=== PATIENT | female | born 1960 | race Caucasian/White ===

== ENCOUNTER → 2017-01-11 | Day surgery (SDC) | payer OTHER ==
[~2017-01-11] VITALS: Ht 152.4 cm; Wt 79.5 kg
[~2017-01-11] MED LIST: *Lactated Ringer's INJ 1,000 ML ONE; *MEPERIDINE 25 MG INJ VIAL PERIprocedural Use ONLY ONE; ACETAMINOPHEN 1000 MG/100 ML 100 ML IV ONE; ALPR.25 PO; BACITRACIN TOP OINT 15 GM TUBE ONE; CARV25TA PO; CHLORHEXIDINE GLUCONATE 2 % 1 PACK (2 CLOTHS) TOPICAL PRN; CLINDAMYCIN 600 MG/NS 100 ML IV SCH; CLON0.1T PO; DEXAMETHASONE SOD PHOS 4 MG/ML VIAL ONE; DILT120T PO; FAMOTIDINE 20 MG/2 ML VIAL ONE; HYDR-3516 PO; HYDR-3580 PO; HYDR12.57 PO; INSULIN HUMAN REGULAR 1,000 UNITS/10 ML VIAL SQ PRN; LACTATED RINGER'S 1000 ML IV PRN; LIDOCAINE 0.5%/EPINEPHrine 1:200,000 SOLN 50 ML VIAL ONE; LISI-515 PO; LOSA50TA PO; METH0.35 IM; METOPROLOL TARTRATE 25 MG TAB PO PRN; MIDAZOLAM HCL 2 MG/2 ML VIAL ONE; MORPHINE SULFATE 8 MG/ML INJ ONE; ONDANSETRON HCL 4 MG/2 ML VIAL IV PUSH ONE; OXYMETAZOLINE HCL 0.05% 15 ML NASAL SPRAY ONE; PHENYLEPH/NS 1000 MCG/10 ML SYR IV ONE; POVIDONE IODINE 5% (ANTISEPSIS KIT) 4 APPLICATIONS EACH NARE PRN; PROPOFOL 200 MG/20 ML AMP IV ONE; ROCURONIUM INJ 50 MG/5 ML VIAL IV ONE; SODIUM CHLORID 0.9% 500 ML IV PRN; SOMA350T PO; TIZA4 PO; ePHEDrine/NS 25 MG/5 ML SYR IV ONE; fentaNYL CITRATE 250 MCG/5 ML AMP ONE
[2017-01-11 11:41] VITALS: PULSE 62
[2017-01-11 12:30] VITALS: PULSE 69; TEMP 98.1
[2017-01-11 13:35] VITALS: BP 150/93; PULSE 53; RESP 16; O2SAT 95
--- NOTE | 2017-01-21 12:13 | MP ---
cc: JADYN DORSEY M.D. DATE OF SURGERY: 01/11/2017 SURGEON Jadyn Dorsey MD. PREOPERATIVE DIAGNOSIS 1. Chronic pansinusitis. 2. Sinonasal polyposis. 3. Nasal airway obstruction. 4. Nasal septal deviation. 5. Hypertrophy of inferior turbinates. POSTOPERATIVE DIAGNOSIS 1. Chronic pansinusitis. 2. Sinonasal polyposis. 3. Nasal airway obstruction. 4. Nasal septal deviation. 5. Hypertrophy of inferior turbinates. 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 INDICATIONS Documented in the history and physical. DESCRIPTION OF OPERATION The patient was taken to OR #2 and placed in the supine position. Following induction of general anesthesia and intubation the nose was packed bilaterally with cotton pledgets saturated in 0.05% oxymetazoline. The nasal septum and inferior turbinates were injected with a total of 8 mL of 1% Xylocaine with epinephrine 1:100,000. She was then prepped and draped for surgery. The nasal packing was removed and a hemitransfixion incision was made in the left nasal vestibule. Through this incision the mucosa of septum was elevated bilaterally as far as the junction of the bony cartilaginous septum. This revealed the quadrangular cartilage which showed evidence of old septal fracture with numerous areas of obstruction caused by the comminuted fracture segments. These were removed in a piecemeal fashion using a Dat elevator and Lenny-Yandel forceps, preserving 1.5 cm dorsal and caudal struts. A cumulative area of 1.5 x 1.5 cm was removed. The mucosa was then elevated from the bony septum and the maxillary crest and these were removed using Lenny-Humphries forceps and a 6 mm Finley chisel. The incision was then closed using running suture of 4-0 chromic and the mucosal layers of septum were approximated to each other with a quilting stitch of 4-0 plain gut. The inferior turbinates were addressed next. They were fractured out medially and stab incisions were made along the inferior surfaces and through these incisions submucosal soft tissue was reduced using a curet and preserving the conchal bone. The incision was cauterized using the suction Bovie at 35 waggoner and the remnants of the inferior turbinates were then re-lateralized to the lateral nasal wall. From this point forward the operation was completed using endoscopic visualization. Additional injections of lidocaine and epinephrine were made into the middle turbinates and to the anterior ethmoid cavity. Additional injection was made into the polypoid mass prolapsing from the right middle meatus. On close inspection using endoscope the mass in the right nasal vault did not appear to be polypoid but looked more like inverting papilloma. A large biopsy was obtained from this mass and was then passed off the field for frozen section examination. 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 Operation on the right side then continued using the power debrider to remove the bulk of the mass from the nasal vault back to the middle meatus. At this point the middle turbinate was removed using through-cutting Blakesley forceps and the power microdebrider. This exposed the uncinate process and the ethmoid cells. The uncinate process was removed using a sickle knife and then the anterior ethmoids were exenterated using blunt dissection and power microdebrider. This removed the final remnants of the papilloma tissue. This was carried back through the basal lamella and as far as the rostrum of the sphenoid. The power debrider was used to clean the edges of the remnant of the inferior turbinate and the posterior cells. The maxillary ostium was then enlarged using the power debrider and the Stammberger forceps. This cavity was evacuated of mucopurulent material, was irrigated with 200 mL of saline. Inspection of the mucosa within the maxillary sinus revealed polypoid tissue and not papilloma. Lastly, on the right side an Acclarent balloon technique was used to dilate the frontal sinus. The guidewire was advanced up into the frontal duct and sinus. The balloon was then advanced over the wire. It was inflated to a pressure of 12 atmospheres up within the frontal sinus in the midpoint of the duct and inferiorly at the junction of the duct with the anterior ethmoid cells. The frontal sinus was then irrigated with 200 mL of saline through the irrigation port of the Acclarent instrument. This continued until it returned clear. The balloon was then removed and the duct was inspected. There was no evidence of papillomatous tissue within the frontal duct. The duct itself was verified patent all the way into the frontal sinus. The right sinus cavities were then packed with cotton pledgets saturated in oxymetazoline which remained in place while the left side was operated. On this side the left middle turbinate was removed using the same technique as on the right. The anterior ethmoid cells were opened anteriorly and posteriorly with blunt and power dissection. This side was also irrigated and suctioned. The packing was removed from the left side and both sides were filled with Stammberger sinus foam into the opened sinus cavities. The inferior of the nasal vault was filled with bilateral 5.5 cm Rapid Rhino packs each inflated with 5 mL of air and the procedure was terminated. The patient was reversed from anesthesia and taken to Recovery in good condition. There were no complications. Blood loss was 200 mL. MD CARLENE Oseguear/CHEL /7:37 AM /11:44 AM
== END | disposition home or self-care (01) ==
LOC: PHSDC 07:31
PROVIDERS: ATTEND Otolaryngology
DX: D14.0 Benign neoplasm of middle ear, nasal cavity and accessory sinuses (principal); J32.4 Chronic pansinusitis; J33.8 Other polyp of sinus; J34.2 Deviated nasal septum; J34.3 Hypertrophy of nasal turbinates; I10 Essential (primary) hypertension; G47.30 Sleep apnea, unspecified; K21.9 Gastro-esophageal reflux disease without esophagitis; G40.909 Epilepsy, unspecified, not intractable, without status epilepticus; M54.2 Cervicalgia; M54.9 Dorsalgia, unspecified; Z87.891 Personal history of nicotine dependence; Z79.899 Other long term (current) drug therapy
CPT/HCPCS: 00160; 30140; 30520; 31237; 31296; 88305; 88311; 88331; J0131; J1100; J2175; J2250; J2270; J2370; J2405; J3010; J7120